=== PATIENT | female | born 1980 | race American Indian/Alaskan Native ===

== ENCOUNTER 2019-08-16 10:39 | Outpatient (CLI) | payer OTHER ==
--- NOTE | 2019-08-16 16:25 | Mammography Report ---
DIGITAL SCREENING MAMMOGRAM WITH CAD, 08/16/2019 INDICATION: Routine screening mammography. TECHNIQUE: Digital bilateral 2D mammography was obtained in the craniocaudal and mediolateral obliq ue projections. This examination was interpreted with the benefit of Computer-Aided Detection analysi s. COMPARISON: None. This is a baseline mammogram. FINDINGS: Breast Density: The breasts are heterogeneously dense, which may obscure small masses. There is no evidence of dominant mass, suspicious calcifications or architectural distortion in eithe r breast. IMPRESSION: No mammographic evidence of malignancy. Follow up recommendation: Routine yearly BI-RADS Category 1: Negative. A "normal" or negative report should not discourage follow up or biopsy of a clinically significant f inding. A written summary of these findings will be mailed to the patient. The patient will be entered into a mammography reporting system which will generate a reminder letter for the patient's next appointmen t at the appropriate interval. The [employer] recommends yearly mammograms starting at age 40 and continuing as l thasi as a woman is in good health. Breast MRI is recommended for women with an approximate 20-25% or greater lifetime risk of breast cancer, including women with a strong family history of breast or ova jazmin cancer or who have been treated for Hodgkin's disease. Signer Name: Robe Mtz MD Signed: 08/16/2019 4:21 PM Workstation Name: [id number]
== END 2019-08-16 10:40 | disposition home or self-care (01) ==
LOC: SPVWC 10:39
PROVIDERS: ATTEND Internal Medicine
DX: Z12.31 Encounter for screening mammogram for malignant neoplasm of breast (principal)
CPT/HCPCS: 77067

== ENCOUNTER 2021-08-14 14:41 | Outpatient (CLI) | payer OTHER | END 2021-08-14 14:42 | disposition home or self-care (01) | LOC: MAMMO 14:41 | PROVIDERS: ATTEND Internal Medicine | DX: Z12.31 Encounter for screening mammogram for malignant neoplasm of breast (principal) | CPT/HCPCS: 77067 ==

== ENCOUNTER 2021-08-24 14:08 | Outpatient (CLI) | payer OTHER ==
--- NOTE | 2021-08-24 16:57 | Ultrasound Report ---
US extremity nonvascular RT INDICATION / CLINICAL INFORMATION: R22.40. COMPARISON: None available. FINDINGS: Limited grayscale and color Doppler imaging within the right medial knee area of concern. There is a 5.5 x 5.2 x 2.7 cm mass with echogenicity similar to fat with thin echogenic septa. There is minimal internal vascularity. IMPRESSION: 1. 5.5 cm lipoma in the right medial knee area of concern without suspicious features. Scribed by: Samra Her RDMS, ANTONIOT, GLEN Scribed: 08/24/2021 3:40 PM I have reviewed the images, agree with this report, and edited this report as needed. Signer Name: Kb Workman MD Signed: 08/24/2021 4:52 PM Workstation Name: [id number]
== END 2021-08-24 14:09 | disposition home or self-care (01) ==
LOC: US 14:08
PROVIDERS: ATTEND Internal Medicine
DX: D17.23 Benign lipomatous neoplasm of skin and subcutaneous tissue of right leg (principal); R22.40 Localized swelling, mass and lump, unspecified lower limb